=== PATIENT | male | born 1990 | race Caucasian/White ===

== ENCOUNTER 2017-04-24 20:33 | Emergency (ER) | payer SELFPAY ==
[~2017-04-24] VITALS: Ht 165.1 cm; Wt 61.0 kg
[~2017-04-24 20:33] MED LIST: AUGMENTIN875 MG PO; PERCOCET 5/31 TABLET PO
[2017-04-24] MEDS ORDERED: PERCOCET 5/31 TABLET PO (23:12)
[2017-04-24] MEDS ORDERED: MOTRIN800 MG PO (23:12)
[2017-04-24 23:13] VITALS: BP 136/93
== END 2017-04-24 23:27 | disposition home or self-care (01) ==
LOC: EME 20:33
PROC: 2W3DX1Z Immobilization of Left Lower Arm using Splint (ICD-10-PCS; principal; 2017-04-24)
DX: S62.002A Unspecified fracture of navicular [scaphoid] bone of left wrist, initial encounter for closed fracture (principal); S53.402A Unspecified sprain of left elbow, initial encounter; S83.92XA Sprain of unspecified site of left knee, initial encounter; W19.XXXA Unspecified fall, initial encounter; Y93.39 Activity, other involving climbing, rappelling and jumping off
CPT/HCPCS: 73080; 73110; 73564; 99281; 99284

== ENCOUNTER 2017-06-07 19:41 | Emergency (ER) | payer OTHER ==
[~2017-06-07] VITALS: Ht 165.1 cm; Wt 62.6 kg
[~2017-06-07 19:41] MED LIST changes: +MOTRIN800 MG PO
[2017-06-07] MEDS ORDERED: PERCOCET 5/31 TABLET PO (23:15)
[2017-06-07 23:27] VITALS: BP 126/91
== END 2017-06-07 23:27 | disposition home or self-care (01) ==
LOC: EME 19:41
DX: S02.652A Fracture of angle of left mandible, initial encounter for closed fracture (principal); Y04.0XXA Assault by unarmed brawl or fight, initial encounter; F17.200 Nicotine dependence, unspecified, uncomplicated
CPT/HCPCS: 70110; 70486; 99281; 99284; J3010

== ENCOUNTER 2017-07-27 17:38 | Emergency (ER) | payer OTHER ==
[~2017-07-27] VITALS: Ht 165.1 cm; Wt 59.0 kg
[2017-07-27 20:59] LABS: HEMATOCRIT 45.2 % (38.0-50.0); MCH 30.9 PG (29.0-34.0); MCHC 33.2 G/DL (30.0-36.0); MEAN PLAT.VOLUME 9.6 uM^3 (9.0-12.4); PLATELET COUNT 259 K/uL (156-360); RBC DIS.WIDTH-CV 11.9 % (11.8-14.6); RBC DIS.WIDTH-SD 40.8 % (39-53); RED BLOOD COUNT 4.86 M/uL (4.00-5.50); WHITE BLOOD COUNT 11.6 K/uL (4.1-10.2)
[2017-07-27 21:10] LABS: CHLORIDE 97 mEq/L (99-109); POTASSIUM 4.8 mEq/L (3.7-5.4); SODIUM 138 mEq/L (136-147)
[2017-07-27 21:12] LABS: GLUCOSE 92 mg/dL (70-99)
[2017-07-27 21:13] LABS: ANION GAP 15 MEQ/L (2-14)
[2017-07-27 21:16] LABS: GFR ESTIMATE (CALCULATED) > 59 mL/min/
[2017-07-27 21:17] LABS: UREA NITROGEN (BUN) 5 mg/dL (9-23)
[2017-07-28 09:19] VITALS: BP 119/70
== END 2017-07-28 09:23 | disposition short-term general hospital (02) ==
LOC: EXP 17:38 → EME 17:38 → EXP 07-28 09:23
PROVIDERS: Physician Assistant
DX: L03.211 Cellulitis of face (principal); L02.01 Cutaneous abscess of face; S02.652A Fracture of angle of left mandible, initial encounter for closed fracture; X58.XXXA Exposure to other specified factors, initial encounter; L02.11 Cutaneous abscess of neck; K04.90 Unspecified diseases of pulp and periapical tissues; R00.0 Tachycardia, unspecified; F17.200 Nicotine dependence, unspecified, uncomplicated
CPT/HCPCS: 70487; 80048; 85027; 87040; 99281; 99285; J1885; J2405; J3010; J7030